=== PATIENT | female | born 1985 | race Caucasian/White ===

== ENCOUNTER 2019-05-10 10:00 | Inpatient (IN) | payer OTHER ==
[2019-05-18] MEDS ORDERED: ELECTROLYTE-148 SOLN 1,000 ML IV SCH ×2 (08:15→09:15)
[2019-05-18] MEDS ORDERED: CITRIC ACID/SODIUM CITRATE 30 ML UNIT-DOSE CUP PO ONE ×2 (08:15→09:13)
[2019-05-18 08:30] VITALS: BMI 31.7
[2019-05-18] MEDS ORDERED: OXYTOCIN 20 UNITS in 0.9% NS 40 UNIT/2,000 ML INFUS.BAG IV ONE (08:56)
[2019-05-18] MEDS ORDERED: morphine SULFATE/PF 0.5 MG/ML (2cc Syringe - QUVA) ONE (09:18)
--- NOTE | 2019-05-18 09:19 | HP ---
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: Alzheimer's, CVA, Dementia, Migraine, Multiple Sclerosis, Peripheral Neuropathy, Parkinson's, Seizure, Syncope, TIA, Vertigo, Other Cardiovascular: No: AFIB, Aneurysm, Aortic Insufficiency, Aortic Stenosis, CAD, CHF, Deep Vein Thrombosis, HTN, Hyperlipdemia, HI, Mitral Insufficiency, Mitral Stenosis, Murmur, Pulmonary Hypertension, Other Pulmonary: No: Asthma, Bronchitis, Cancer, COPD, O2 Dependent, Pneumonia, Previously Intubated, Pulmonary Embolus, Pulmonary Fibrosis, Sleep Apnea, Other Gastrointestinal: No: Ascites, Cancer, Constipation, Crohn's Disease, Diverticulitis, Diverticulosis, Esophageal Varices, Gastritis, GERD, GI Bleed, Hemorrhoids, Hiatal Hernia, Inflamatory Bowel Disease, Irritable Bowel Disease, Pancreatitis, Peptic Ulcer Disease, Ulcerative Colitis, Other Hepatobiliary: No: Cirrhosis, Cholelithiasis, Cholecystitis, Choledocholithiasis , Hepatitis A, Hepatitis B, Hepatitis C, Other Renal/: No: Renal Failure, Renal Inusuff, BPH, Cancer, Hematuria, Hemodialysis , Neurogenic Bladder, Renal Calculi, UTI, Other Reproductive: No: Ectopic , Endometriosis, Fibroids, PID, Polycystic Ovary Syndrome, Postmenopausal, Other ...: 3 ...Para: 2 ...Term: 2 ...: 0 ...Spon : 0 ...Induced : 0 ...Multiple Gestation: 0 ... Weeks Gestation by Dates: 39 ...EDC by Gris: 05/25/06 Heme/Onc: No: Anemia, B12 Deficiency, Bleeding Disorder, Cancer, Current Chemotherapy, Current Radiation Therapy, Hemochromatosis, Hypercoaguable State, Myeloproliferative Synd, Sickle Cell Disease, Sickle Cell Trait, Thrombocytopenia, Other Infectious Disease: No: AIDS, C-Diff, Herpes Zoster, HIV, MRSA, STD's, Tuberculosis, VREF, Other Psych: No: Addictions, Anxiety, Bipolar, Depression, Panic, Psychosis, Schizophrenia, Other Musculoskeletal: No: Bursitis, Chronic low back pain, Hemiparesis, Hemiplegia, Osteoarthritis, Paraplegia, Other Rheumatology: No: Fibromyalgia, Gout, Lupus, Rheumatoid Arthritis, Sarcoidosis, Vasculitis, Other ENT: No: Allergic Rhinitis, Sinusitis, Other Endocrine: Yes: Diabetes Mellitus Dermatology: No: Basal Cell, Cellulitis, Eczema, Melanoma, Psoriasis, Squamous Cell, Other Additional Medical History: 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 - Past Surgical History Past Surgical History: No: None, AAA Repair, AICD, Amputation, Appendectomy, Arthrosocopy, AV Fistula/Graft, Bariatric Surgery, Breast Biopsy, Bypass, CABG, Carotid Endarterectomy, Cataract Removal, Cholecystectomy, Colectomy, Colonoscopy, Colostomy, Craniotomy, , Cystectomy, Hernia Repair, Hysterectomy, Ileal Conduit, Ileosotomy, Joint Replacement, Kidney Transplant, Laminectomy, Liver Transplant, Mastectomy, Nephrectomy, Oopherectomy, Orchiectomy, Permanent Pacemaker, Prostatectomy, Splenectomy, Stent, Thoracotomy , TURP, Tonsillectomy, Tubal Ligation, Upper Endoscopy, Valve Replacement, Vasectomy, Vein Stripping/Ligation Hx Myomectomy: No Hx Transabdominal Cerclage: No - Advance Directives Advance Directives: Yes: Living Will - Smoking History Smoking history: Never smoked Have you smoked in the past 12 months: No - Alcohol/Substance Use Hx Alcohol Use: No History of Substance Use: reports: None - Social History Usual Living Arrangement: Yes: With Spouse Do you think of yourself as: Straight/Heterosexual ADL: Independent History of Recent Travel: No Home Medications - Allergies Allergies/Adverse Reactions: Allergies Allergy/AdvReac Type Severity Reaction Status Date / Time No Known Allergies Allergy Verified 05/18/19 07:53 - Home Medications Home Medications: Ambulatory Orders Vitamins (Sjr) - 1 tab PO DAILY 04/12/19 Family Medical History Family History: Denies Review of Systems - Review of Systems Constitutional: reports: No Symptoms Eyes: reports: No Symptoms HENT: reports: No Symptoms Neck: reports: No Symptoms Cardiovascular: reports: No Symptoms Respiratory: reports: No Symptoms Gastrointestinal: reports: No Symptoms Genitourinary: reports: No Symptoms Breasts: reports: No Symptoms Reported Musculoskeletal: reports: No Symptoms Integumentary: reports: No Symptoms Neurological: reports: No Symptoms Endocrine: reports: No Symptoms Hematology/Lymphatic: reports: No Symptoms Psychiatric: reports: No Symptoms Physical Exam - Maternity Vital Signs: Vital Signs Temperature 98.6 F 05/18/19 08:00 Pulse Rate 75 05/18/19 08:00 Respiratory Rate 18 05/18/19 08:00 Blood Pressure 133/78 05/18/19 08:00 O2 Sat by Pulse Oximetry (%) Constitutional: Yes: Well Nourished, No Distress, Calm Eyes: Yes: WNL, Conjunctiva Clear, EOM Intact HENT: Yes: WNL, Atraumatic, Normocephalic Neck: Yes: WNL, Supple, Trachea Midline Cardiovascular: Yes: WNL, Regular Rate and Rhythm Lungs: Clear to auscultation Breast(s): Yes: WNL - Abdominal Exam/OB Fundal Height: 38 Number of Fetuses: Single Presentation: Vertex Contractions: Yes Regularity: Irregular Intensity: Unaware Monitor Mode: External Heart Rate (range): 130 to 150 Heart Rate Location: [facility] Category: I Accelerations: None Decelerations: None - Vaginal Exam/OB Vaginal Bleediing: No Speculum Exam: No Amniotic Membrane Status: Intact Presentation: Vertex/Position Station: -2 - Physical Exam Musculoskeletal: Yes: WNL Extremities: Yes: WNL Edema: No Integumentary: Yes: WNL Deep Tendon Reflex Grade: Normal +2 ...Motor Strength: WNL Psychiatric: Yes: WNL, Alert, Oriented Assessment/Plan for repeat lt c s, btl
[2019-05-18] MEDS ORDERED: morphine SULFATE/PF 0.5 MG/ML (2cc Syringe - QUVA) EP ONE (09:31)
[2019-05-18] MEDS ORDERED: PHENYLEPHRINE HCL 10 MG/1 ML SINGLE DOSE VIAL ONE (09:36)
[2019-05-18] MEDS ORDERED: KETOROLAC TROMETHAMINE 30 MG/1 ML VIAL ONE (09:38)
[2019-05-18] MEDS ORDERED: ceFAZolin SODIUM 1 GM VIAL ONE (09:38)
[2019-05-18] MEDS ORDERED: ONDANSETRON 4 MG/2 ML VIAL IVPUSH PRN (10:07)
[2019-05-18] MEDS ORDERED: ACETAMINOPHEN 1000 MG/100 ML VIAL (NON FORMULARY) IVPB ONE (10:09)
[2019-05-18] MEDS: OXYTOCIN 20 UNITS in 0.9% NS 20 UNIT/1,000 ML INFUS.BAG IV SCH ×2 (10:45→17:54)
[2019-05-18] MEDS ORDERED: IBUPROFEN 600 MG TABLET (FP) PO PRN (10:49)
[2019-05-18] MEDS ORDERED: ACETAMINOPHEN 325 MG TABLET (FP) PO PRN (10:49)
[2019-05-18] MEDS ORDERED: SENNOSIDES/DOCUSATE COMBO (SENNA PLUS) TABLET (UD) PO PRN (10:49)
[2019-05-18] MEDS ORDERED: oxyCODONE HCL 5 MG TABLET PO PRN ×2 (10:49)
[2019-05-18] MEDS ORDERED: IBUPROFEN 800 MG/8 ML IJ IVPB PRN (10:49)
[2019-05-18] MEDS ORDERED: SIMETHICONE 80 MG TAB.CHEW (FP) PO PRN (10:49)
[2019-05-18] MEDS ORDERED: METHYLERGONOVINE MALEATE 0.2 MG/1 ML AMP IM PRN (10:49)
--- NOTE | 2019-05-18 10:49 | OP ---
Operative Note - Note: Operative Date: 05/18/19 Pre-Operative Diagnosis: repeat lt c s , btl , 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,breech Operation: repeat lt c s , btl Findings: double footling breech Post-Operative Diagnosis: Same as Pre-op Surgeon: Handy Baron Licensed Reactor Operator: Mesfin Rebolledo Anesthesiologist/HOUSE SERVANT: Stephon Elizabeth Anesthesia: Spinal Specimens Removed: tubes Estimated Blood Loss (mls): 500 (no complications, thin lower segment ) Operative Report Dictated: Yes
[2019-05-18] MEDS ORDERED: ACETAMINOPHEN INJECTION 100 ML IVPB ONE (11:55)
--- NOTE | 2019-05-18 12:44 | SURG ---
Surgery Testing Engineer Note Testing Engineer: Mesfin Rebolledo PA-C Date of Service: 05/18/19 Diagnosis: History of section. Gestational Diabetes (on insulin). Breech baby. Requesting sterilization. Procedure: Repeat low transverse section. Bilateral tubal ligation I was present for the entirety of the operative procedure. For further detail, please refer to operative report. Visit type - Case Type Case Type: Scheduled - New patient This patient is new to me today: Yes Date on this admission: 05/18/19
--- NOTE | 2019-05-19 08:28 | PN ---
Progress Note (short form) - Note Progress Note: Anesthesia/Pain Pt seen and examined S:Alert and awake comfortable O: Vital Signs Temperature 98.4 F 05/19/19 05:46 Pulse Rate 68 05/19/19 05:46 Respiratory Rate 20 05/19/19 06:00 Blood Pressure 112/68 05/19/19 05:46 O2 Sat by Pulse Oximetry (%) 100 05/18/19 12:00 A/P s/p c section BTL Doing well post op Continue current care Janes Jeffrey MD
[2019-05-19 09:30] LABS: BASO % 0.4 % (0-2.0); EOS % 2.6 % (0-4.5); HEMATOCRIT 32.6 % (32.4-45.2); LYMPH % 12.9 % (8-40); MCH 30.9 pg (25.7-33.7); MCHC 33.8 g/dl (32.0-36.0); MEAN CELL VOLUME 91.4 fl (80-96); MONO % 5.5 % (3.8-10.2); NEUT % 78.6 % (42.8-82.8); RBC 3.56 M/mm3 (3.60-5.2); RDW 14.1 % (11.6-15.6); WHITE BLOOD COUNT 11.7 K/mm3 (4.0-10.0)
[2019-05-19] MEDS: ENOXAPARIN NA (PORCINE) 40 MG/0.4 ML DISP.SYRIN SQ SCH (10:10)
[2019-05-19] MEDS ORDERED: BISACODYL 10 MG SUPP.RECT RC PRN (10:49)
[2019-05-19 11:04] LABS: PLATELET ESTIMATE NORMAL
[2019-05-19 11:22] LABS: MEAN PLT VOLUME 9.9 fl (7.5-11.1); PLATELET COUNT 166 K/MM3 (134-434)
[2019-05-19] MEDS: LACTATED RINGERS SOLUTION 1,000 ML IV SCH (19:00)
[2019-05-19] MEDS: OXYTOCIN 20 UNITS in 0.9% NS 20 UNIT/1,000 ML INFUS.BAG IV SCH (19:00)
--- NOTE | 2019-05-19 19:31 | PN ---
Post Progress Note Post Day: 1 Type of Delivery: Repeat C/S Vital Signs: Vital Signs Temperature 98.0 F 05/19/19 07:30 Pulse Rate 72 05/19/19 07:30 Respiratory Rate 18 05/19/19 09:00 Blood Pressure 121/72 05/19/19 07:30 O2 Sat by Pulse Oximetry (%) 100 05/18/19 12:00 Breast Exam: Yes: Soft Uterus: Yes: Fundus Firm, Fundus below umbilicus Incision: Yes: Dressing dry and intact, Sutures intact Abdomen/GI: Yes: Abdomen soft, Passing flatus, Tolerating PO Lochia: Yes: Serosa Lochia, amount: Small Extremities: Yes: Calves non-tender Perineum: Yes: Intact Activity: Ambulating (doing well, no pain, vss, wants to go home tomorrow ) - Labs Labs: CBC WBC 11.7 K/mm3 (4.0-10.0) H 05/19/19 08:45 RBC 3.56 M/mm3 (3.60-5.2) L 05/19/19 08:45 Hgb 11.0 GM/dL (10.7-15.3) 05/19/19 08:45 Hct 32.6 % (32.4-45.2) 05/19/19 08:45 MCV 91.4 fl (80-96) 05/19/19 08:45 MCH 30.9 pg (25.7-33.7) 05/19/19 08:45 MCHC 33.8 g/dl (32.0-36.0) 05/19/19 08:45 RDW 14.1 % (11.6-15.6) 05/19/19 08:45 Plt Count 166 K/MM3 (134-434) 05/19/19 08:45 MPV 9.9 fl (7.5-11.1) 05/19/19 08:45 Absolute Neuts (auto) 9.2 K/mm3 (1.5-8.0) H 05/19/19 08:45 Neutrophils % 78.6 % (42.8-82.8) 05/19/19 08:45 Lymphocytes % 12.9 % (8-40) D 05/19/19 08:45 Monocytes % 5.5 % (3.8-10.2) 05/19/19 08:45 Eosinophils % 2.6 % (0-4.5) 05/19/19 08:45 Basophils % 0.4 % (0-2.0) 05/19/19 08:45 Nucleated RBC % 0 % (0-0) 05/19/19 08:45 Platelet Estimate Normal 05/19/19 08:45 Assessment/Plan dc pt home tomorrow
--- NOTE | 2019-05-19 19:36 | DS ---
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 Vital Signs: Vital Signs Temperature 98.0 F 05/19/19 07:30 Pulse Rate 72 05/19/19 07:30 Respiratory Rate 18 05/19/19 09:00 Blood Pressure 121/72 05/19/19 07:30 O2 Sat by Pulse Oximetry (%) 100 05/18/19 12:00 Constitutional: Yes: Well Nourished, No Distress, Calm Eyes: Yes: WNL, Conjunctiva Clear, EOM Intact HENT: Yes: WNL, Atraumatic, Normocephalic Neck: Yes: WNL, Supple, Trachea Midline Cardiovascular: Yes: WNL, Regular Rate and Rhythm Respiratory: Yes: WNL, Regular, CTA Bilaterally Gastrointestinal: Yes: WNL, Normal Bowel Sounds, Soft ...Rectal Exam: Yes: WNL Renal/: Yes: WNL Pelvis: Yes: WNL Internal Exam Deferred: No Vaginal Exam: Yes: Normal Cervix: Yes: Normal Uterus: Yes: Normal Adnexa: Normal: Bilateral ....Post : Yes: Uterus firm, Uterus non-tender Breast(s): Yes: WNL Musculoskeletal: Yes: WNL Extremities: Yes: WNL Edema: Yes Edema: LUE: 1+, RUE: 1+, LLE: 1+, RLE: 1+ Integumentary: Yes: WNL Wound/Incision: Yes: Clean/Dry, Well Approximated Neurological: Yes: WNL, Alert, Oriented ...Motor Strength: WNL Psychiatric: Yes: WNL, Alert, Oriented Labs: CBC, BMP 05/19/19 08:45 Delivery - Delivery Section: Repeat Type of Anesthesia: Spinal Episiotomy/Laceration: None EBL (cc): 500 Delivery, Single - Stages of Labor Date of Delivery: 05/18/19 Time of Delivery: 09:53 Time Placenta Delivered: 09:54 - Condition of Infant Provisioning Analyst/Instructor Technical Training Present: Yes Name: Marlen Soto Infant Gender: Female Weight: 4.139 kg Total Hours ROM (Hrs/Mins): 0/2 - 1 Minute Total Score: 9 5 Minutes Total Score: 9 - [place] Feeding Plan Initial Plan: Exclusive throughout hospitalization Discharge Summary Problems reviewed: Yes Reason For Visit: REPEAT none Procedures: Principal: repeat lt c s Other Procedures: btl Hospital Course: uneventful Health Concerns: none Plan of Treatment: oob as much as possible Condition: Good - Instructions Diet, Activity, Other Instructions: regular, routine post c s post care Disposition: HOME - Home Medications Comprehensive Discharge Medication List: Ambulatory Orders Vitamins (Sjr) - 1 tab PO DAILY 04/12/19 Insulin Lispro 12 unit SQ ACHS 05/18/19 Insulin Lispro [Insulin Lispro Kwikpen U-100] 12 unit SQ ACBK 05/18/19 Insulin NPH [Novolin N Vial] 12 units SQ ACBK 05/18/19 Insulin NPH [Novolin N Vial] 12 units SQ ACDIN 05/18/19 Prescription Drug Monitoring Program (I-STOP) results: I-STOP reviewed and no issues identified
[2019-05-20 08:50] LABS: BASO % 0.2 % (0-2.0); EOS % 4.4 % (0-4.5); HEMATOCRIT 33.8 % (32.4-45.2); HEMOGLOBIN 11.4 GM/dL (10.7-15.3); LYMPH % 16.2 % (8-40); MCH 30.8 pg (25.7-33.7); MCHC 33.6 g/dl (32.0-36.0); MEAN CELL VOLUME 91.7 fl (80-96); MEAN PLT VOLUME 8.6 fl (7.5-11.1); MONO % 6.5 % (3.8-10.2); NEUT % 72.7 % (42.8-82.8); PLATELET COUNT 235 K/MM3 (134-434); RBC 3.69 M/mm3 (3.60-5.2); RDW 14.4 % (11.6-15.6); WHITE BLOOD COUNT 9.7 K/mm3 (4.0-10.0)
[2019-05-20 09:49] VITALS: BP 133/85; PULSE 87; TEMP 98.4
[2019-05-20] MEDS: ENOXAPARIN NA (PORCINE) 40 MG/0.4 ML DISP.SYRIN SQ SCH (10:00)
--- NOTE | 2019-05-20 12:23 | OP ---
DATE OF OPERATION: 05/18/2019 PREOPERATIVE DIAGNOSES: Breech presentation, repeat low-transverse section, bilateral tubal ligation, gestational diabetic on insulin. POSTOPERATIVE DIAGNOSES: Breech presentation, repeat low-transverse section, bilateral tubal ligation, gestational diabetic on insulin, double footling breech presentation. PROCEDURE: Repeat low-transverse section, bilateral tubal ligation. SURGEON: Handy Baron MD BLOOD TESTER FOWL: SHWETHA Banks ANESTHESIOLOGIST: Todd Elizabeth MD. Spinal anesthesia. INDICATION: This is a 34-year-old female patient, 39 weeks , gestational diabetic on insulin, breech presentation, and known to be macrosomia. Patient's glucose is well controlled, although patient started late, about 20 weeks, for the care. All the risks, benefits, and alternatives explained to the patient future , ectopic, nonreversibility of this procedure of bilateral tubal ligation. The patient understood. The patient insists on a tubal ligation, declined for any other family planning methods, no control pill or any other methods. Patient has 3 children. Patient said she is done, no more babies. The patient was taken to the OR, placed on the operating table in supine position after spinal anesthesia was obtained. The patient's abdomen and pelvis was prepped and draped in the usual sterile manner. Old Pfannenstiel incision was made. Incision was made through the skin and subcutaneous tissue until the fascia was nicked in the midline. An old keloid scar was also removed. Incision was made through skin until the fascia, and fascia extended bilaterally. Intraperitoneal cavity was entered. No complications, no adhesion was found. Intraabdominal cavity was entered and the peritoneum was entered. Bladder flap was created and low-transverse segment of uterus was entered. Baby was delivered from double footling breech presentation. The baby was handed over to food vendor after umbilical cord doubly clamped and cut, cord blood gas obtained, placenta was removed. Uterus closed in single layer, first layer interlocking Vicryl sutures. Good hemostasis. There was cord around the neck x1. The uterus was closed. No complication. Both ovaries, fallopian tubes were within normal limits, no complication. Bladder flap was closed. Peritoneum was closed. Fascia was closed. Skin was closed. Draining clear urine. Blood loss about 500 mL. The baby was handed over to food vendor after umbilical cord doubly clamped and cut, cord blood gas obtained. Placenta was removed. Uterine was closed in single layer, first layer with interlocking Vicryl suture, good hemostasis, no complication and good hemostasis, and then we proceeded to the tubal ligation part. Both isthmic ends of fallopian tubes were grasped with [place] and double transected and suture ligated, good hemostasis. Both ends were coagulated with Bovie, good hemostasis, no complication. The patient tolerated the procedure well. Both ovaries were within normal limits, no cysts. Good hemostasis. Blood loss about 500 mL. Draining clear urine. Then peritoneum was closed, bladder flap was closed, peritoneum was closed, the fascia was closed. Skin was closed with subcuticular sutures, good hemostasis. Transferred to recovery room in stable condition. Pathology specimen: Placenta. MD COLEMAN CHEEMA/[id number]
== END 2019-05-20 13:30 | disposition home or self-care (01) | DRG 540 ==
LOC: JLDR 05-18 07:05 → J3W 05-18 12:23
PROVIDERS: ADMIT Obstetrics & Gynecology; ATTEND Obstetrics & Gynecology
PROC: 10D00Z1 Extraction of Products of Conception, Low, Open Approach (ICD-10-PCS; principal; 2019-05-18)
PROC: 0UB70ZZ Excision of Bilateral Fallopian Tubes, Open Approach (ICD-10-PCS; 2019-05-18)
DX: O32.1XX0 Maternal care for breech presentation, not applicable or unspecified (principal); O34.211 Maternal care for low transverse scar from previous cesarean delivery; N85.8 Other specified noninflammatory disorders of uterus; O24.424 Gestational diabetes mellitus in childbirth, insulin controlled; Z3A.39 39 weeks gestation of pregnancy; O36.63X0 Maternal care for excessive fetal growth, third trimester, not applicable or unspecified; Z37.0 Single live birth; Z30.2 Encounter for sterilization
CPT/HCPCS: 36415; 82962; 85025; J0131